=== PATIENT | male | born 1960 ===

== ENCOUNTER 2019-11-21 21:12 | Emergency (ER) | payer OTHER, BC, SELFPAY ==
[2019-11-21 21:21] VITALS: BP 134/73; PULSE 74; RESP 18; TEMP 36.7; O2SAT 98; BMI 36.9
--- NOTE | 2019-11-21 21:56 | CTR_ITS ---
PROCEDURE INFORMATION: Exam: CT Head Without Contrast Exam date and time: 11/21/2019 10:10 PM Age: 59 years old Clinical indication: Syncope and collapse; Patient HX: Syncope episode yesterday hitting head on toilet C/O SRIVASTAVA, abrasion L forhead and neck pain TECHNIQUE: Imaging protocol: Computed tomography of the head without contrast. Radiation optimization: All CT scans at this facility use at least one of these dose optimization techniques: automated exposure control; mA and/or kV adjustment per patient size (includes targeted exams where dose is matched to clinical indication); or iterative reconstruction. COMPARISON: No relevant prior studies available. RADIATION DOSE METRICS: Total DLP (mGy-cm): 868.58 FINDINGS: Brain: No acute intracranial hemorrhage or mass effect. No definite acute infarct by CT. MRI could be more sensitive/specific for detection, as clinically directed. Ventricles: Ventricle size is normal for age. Bones/joints: No definite acute skull fracture. Sinuses: Included paranasal sinuses are essentially clear. Mastoid air cells: No significant acute finding. Soft tissues: Evidence for soft tissue injury/scalp hematoma in the left frontal region. CT/CT head wo con* [id number] IMPRESSION: 1. No acute intracranial hemorrhage or mass effect. 2. No definite acute infarct by CT, see above. 3. Other findings discussed above. Radiation Dose CTDIVOL = (mGy): DLP = 868.58 (mGy-cm)
--- NOTE | 2019-11-21 21:56 | XRR_ITS ---
PROCEDURE INFORMATION: Exam: XR Chest, 1 View Exam date and time: 11/21/2019 10:50 PM Age: 59 years old Clinical indication: Injury or trauma; Injury history: Syncope; Initial encounter; Abrasion TECHNIQUE: Imaging protocol: XR of the chest Views: 1 view. COMPARISON: No relevant prior studies available. FINDINGS: Lungs: No CHF/pulmonary edema. Visible lungs appear essentially clear. Pleural space: No visible pneumothorax. No definite pleural fluid. Heart/Mediastinum: Heart size is within normal limits. Vasculature: Mild aortic tortuosity. Bones/joints: No significant acute finding. XR/XR chest 1V portable [id number] IMPRESSION: 1. Essentially unremarkable single view chest. 2. Other findings discussed above.
--- NOTE | 2019-11-21 21:57 | CTR_ITS ---
PROCEDURE INFORMATION: Exam: CT Cervical Spine Without Contrast Exam date and time: 11/21/2019 10:10 PM Age: 59 years old Clinical indication: Patient HX: Syncope episode yesterday hitting head on toilet C/O SRIVASTAVA, abrasion L forhead and neck pain; Additional info: Fall TECHNIQUE: Imaging protocol: Computed tomography images of the cervical spine without contrast. Radiation optimization: All CT scans at this facility use at least one of these dose optimization techniques: automated exposure control; mA and/or kV adjustment per patient size (includes targeted exams where dose is matched to clinical indication); or iterative reconstruction. COMPARISON: No relevant prior studies available. RADIATION DOSE METRICS: Total DLP (mGy-cm): 808.94 FINDINGS: Vertebrae: On axial CT images, no definite acute fracture is visible. Sagittal and coronal reconstructions show no fracture or subluxation. Mild to moderate degenerative disc changes and facet joint arthritis at several levels. Discs/Spinal canal/Neural foramina: No definite/significant disc herniation by CT, MRI could be more sensitive if clinically indicated. Lungs: No significant acute finding in the upper lungs. CT/CT cervical spin wo con* [id number] IMPRESSION: 1. No definite acute fracture or subluxation by CT. 2. Other findings discussed above. Radiation Dose CTDIVOL = (mGy): DLP = 808.94 (mGy-cm)
--- NOTE | 2019-11-21 21:57 | ECG_ITS ---
[facility] Test Date: 2019-11-21 Pat Name: Ramez Montiel Department: Room: Gender: Male [employer] C[employer]: : 1960 Requested By: Yan Ribera Order Number: [id number] Wilson MD: Debbie Werner M.D. Measurements Intervals [place] Rate: 69 P: 54 [place]: 182 QRS: 3 QRSD: 100 T: 39 QT: 392 QTc: 422 Interpretive Statements SINUS RHYTHM No previous ECG available for comparison Electronically Signed On 11-22-2019 8:24:34 CDT by Debbie Werner M.D. [id number]
[2019-11-21] MEDS: sodium chloride 0.9% 1,000 ML 999 ML IV (22:00)
[2019-11-21 22:10] LABS: Basophils % 0.3 %; Eosinophils # 0.3 10^3/uL (0.0-0.8); Eosinophils % 3.7 %; Hemoglobin 14.1 g/dL (11.7-16.6); Lymphocytes # 3.1 10^3/uL (0.8-4.8); Lymphocytes % 42.3 %; Mean Corpuscular HGB Conc 34.4 g/dL (30.0-36.0); Mean Corpuscular Hemoglobin 32.9 pg (28.0-34.0); Mean Corpuscular Volume 95.6 fL (80-94); Mean Platelet Volume 10.1 fL (7.4-10.4); Monocytes # 1.1 10^3/uL (0.2-0.9); Monocytes % 14.9 %; Neutrophils # 2.82 10^3/uL (1.8-7.7); Neutrophils % 38.5 %; Nucleated Red Blood Cells % 0 %; Platelet Count 176 10^3/cmm (130-400); Red Blood Count 4.29 10^6/uL (4.1-5.3); Red Cell Distribution Width 12.4 % (12.1-15.1); White Blood Count 7.3 10^3/uL (4.0-10.0)
[2019-11-21 22:39] LABS: Alanine Aminotransferase 31 U/L (0-41); Albumin Level 4.4 g/dL (3.5-5.2); Alkaline Phosphatase 61 IU/L (40-130); Anion Gap 14.8 (5-19); Aspartate Amino Transferase 23 U/L (0-40); Blood Urea Nitrogen 10 mg/dL (6-20); Calcium 8.7 mg/dL (8.5-10.5); Carbon Dioxide 23 mmol/L (22-29); Chloride 102 mmol/L (98-107); Creatine Phosphokinase 152 U/L (39-308); Globulin 2.8 g/dL (1.3-4.6); Glomerular Filtration Rate 68.5 mL/min (90-130); Glucose 105 mg/dL (65-115); Lactate (Lactic Acid level) 1.3 mmol/L (0.5-2.2); Lipase 24 U/L (13-60); Magnesium 1.9 mg/dL (1.7-2.3); Osmolality Calculated 278 mOsm/kg (285-295); Potassium 3.8 mmol/L (3.5-5.1); Sodium 136 mmol/L (136-145); Total Bilirubin 0.3 mg/dL (0.15-1.2); Total Protein 7.2 g/dL (6.6-8.7)
[2019-11-21 22:41] LABS: Troponin(5th) Baseline 9 ng/L (0-15)
[2019-11-21 22:58] LABS: Add Urine Microscopic? NO
[2019-11-21 22:59] LABS: Urine Appearance Clear (CLEAR); Urine Color Straw (Yellow); pH Urine 6 (5-7)
[2019-11-21 23:00] LABS: Bilirubin Urine Neg (NEGATIVE); Blood Urine Neg (Negative); Glucose Urine UA Norm (Normal); Ketones Urine Negative (Negative); Leukocyte Esterase Urine Negative (Negative); Nitrate Urine Negative (Negative); Protein Urine Neg (Negative); Specific Gravity, Urine 1.005 (1.005-1.030); Urobilinogen Urine Norm (Negative)
[2019-11-21 23:22] VITALS: BP 114/78; PULSE 78; RESP 16; O2SAT 98
--- NOTE | 2019-11-22 01:34 | W.ED.FALL ---
HPI - Fall General: Chief Complaint: Fall Stated Complaint: fall/loc Time Seen by Provider: 11/21/19 21:30 History of Present Illness: HPI Narrative: 59-year-old gentleman who the day prior to arrival presents with a syncopal episode. He evidently became diaphoretic, got sick at his stomach, and had some loose stool, followed by vomiting episode. He then passed out, striking his head while he was passed out. He complains of some headache, neck stiffness, and some mild dizziness. He never had any chest pain. His diarrhea is improved at this point. He has had no more vomiting. MD complaint: fall Onset (ago): day(s) (1) Fall from: other Fall witnessed: no Place fall occurred: other Loss of consciousness: Yes Associated symptoms-after fall: Reports headache(s); Denies abdominal pain, chest pain, confusion, hematuria, neck pain or vertigo Review of Systems Const: Reports: chills; Denies: fever(s) Eyes: Denies: change in vision or blurry vision ENMT: Denies: swelling of lips/tongue, epistaxis, post nasal drip or sinus pain Card: Denies: chest pain, palpitations, irregular heart rhythm or edema Resp: Denies: dyspnea or wheezing GI: Reports: nausea and vomiting; Denies: abdominal pain, hematochezia or melena : Denies: difficulty urinating or hematuria Musc: Denies: neck pain or back pain Skin/Breast: Denies: rash or pruritus Neuro: Reports: headache(s) and dizziness; Denies: vertigo, confusion or seizure-like activity Psych: Denies: anxiety Physical Exam Const: GENERAL APPEARANCE: well developed ORIENTATION/CONSCIOUSNESS: Yes oriented to person, Yes oriented to place and Yes oriented to time HENMT: COMMON NORMALS: normocephalic, external ears normal and Normal external nose present HEAD & SCALP: normocephalic; no scalp tenderness FACE & SINUS: normal facial exam and other (Small abrasion to forehead) NOSE: Normal external nose present and No nasal discharge present EXTERNAL EAR: Yes external ears normal THROAT: posterior oropharynx normal; no peritonsillar mass Eye: COMMON NORMALS: Equal, round and reactive pupils present, EOMs intact bilaterally and conjunctivae normal EYELID: eyelids normal CONJUNCTIVA: Yes conjunctivae normal PUPIL: Yes Equal, round and reactive pupils present Neck/C-Spine: COMMON NORMALS: full ROM GENERAL: No tracheal deviation CERVICAL SPINE: Yes normal cervical lordosis and Yes Cervical spine tenderness Chest: COMMONS NORMALS: normal inspection of the chest CHEST: No tenderness Resp: COMMON NORMALS: clear to auscultation bilaterally EFFORT & INSPECTION: No tachypneic, No respiratory distress, No retractions, No uses accessory muscles and No tracheal deviation AUSCULTATION: clear to auscultation bilaterally, no rhonchi, no wheezes and lung sounds not diminished Cardio: COMMON NORMALS: regular rate and regular rhythm RATE: regular rate RHYTHM: regular rhythm HEART SOUNDS: no murmurs PERIPHERAL PULSES: radial pulses present GI: INSPECTION: No abdominal distension AUSCULTATION: No Hyperactive bowel sounds present and No Hypoactive bowel sounds present PALPATION: No Guarding due to palpation present (GI) and No Rigid due to palpation PERCUSSION: no dullness to percussion and no tympanic to percussion Neuro: SENSORIUM/ORIENTATION: Yes oriented to person, Yes oriented to place and Yes oriented to time Psych: COMMON NORMALS: mental status grossly normal Skin: COMMON NORMALS: no rashes or lesions noted GENERAL SKIN EXAM: no rashes or lesions noted Course Vital Signs: Vital signs: Vital Signs Temperature 98.1 F 11/21/19 21:21 Pulse Rate 78 11/21/19 23:22 Respiratory Rate 16 11/21/19 23:22 Blood Pressure 114/78 11/21/19 23:22 Pulse Oximetry 98 11/21/19 23:22 MDM - Fall MDM Narrative: Medical decision making narrative: 59-year-old male with a syncopal episode yesterday. Appears to be while he was vomiting. His EKG is normal with a normal axis, rate of [address] changes. His troponin was negative. Hemoglobin 14. White blood cell count 7. Other labs are benign. His head CT is negative, his CT of the cervical spine is negative for fracture or dislocation. He is got no radicular symptoms coming from his neck. His chest x-ray is nonacute. He will be allowed discharge. Lab Data: Labs: Lab Results 11/21/19 11/21/19 11/21/19 Range/Units 21:55 21:55 21:55 WBC 7.3 (4.0-10.0) 10^3/ uL RBC 4.29 (4.1-5.3) 10^6/u L Hgb 14.1 (11.7-16.6) g/dL Hct 41.0 L (42.0-52.0) % MCV 95.6 H (80-94) fL MCH 32.9 (28.0-34.0) pg MCHC 34.4 (30.0-36.0) g/dL RDW 12.4 (12.1-15.1) % Plt Count 176 (130-400) 10^3/c mm MPV 10.1 (7.4-10.4) fL Neut % (Auto) 38.5 % Lymph % (Auto) 42.3 % Butts % (Auto) 14.9 % Eos % (Auto) 3.7 % Baso % (Auto) 0.3 % Neut # (Auto) 2.82 (1.8-7.7) 10^3/u L Lymph # (Auto) 3.1 (0.8-4.8) 10^3/u L Butts # (Auto) 1.1 H (0.2-0.9) 10^3/u L Eos # (Auto) 0.3 (0.0-0.8) 10^3/u L Baso # (Auto) 0.0 (0.0-0.1) 10^3/u L Nucleated RBC % (a uto) 0 % Nucleated RBCs # 0.0 /100WBC Sodium 136 (136-145) mmol/L Potassium 3.8 (3.5-5.1) mmol/L Chloride 102 (98-107) mmol/L Carbon Dioxide 23 (22-29) mmol/L Anion Gap 14.8 (5-19) BUN 10 (6-20) mg/dL Creatinine 1.1 (0.7-1.2) mg/dL GFR Calculation 68.5 L (90-130) mL/min Glucose 105 (65-115) mg/dL Calculated Osmolal ity 278 L (285-295) mOsm/k g Lactate 1.3 (0.5-2.2) mmol/L Calcium 8.7 (8.5-10.5) mg/dL Magnesium 1.9 (1.7-2.3) mg/dL Total Bilirubin 0.3 (0.15-1.2) mg/dL AST 23 (0-40) U/L ALT 31 (0-41) U/L Alkaline Phosphata se 61 (40-130) IU/L Creatine Kinase 152 (39-308) U/L Troponin T Baselin e (0-15) ng/L C-Reactive Protein 39.0 H (0.0-4.9) mg/L Total Protein 7.2 (6.6-8.7) g/dL Albumin 4.4 (3.5-5.2) g/dL Globulin 2.8 (1.3-4.6) g/dL Lipase 24 (13-60) U/L Urine Color (Yellow) Urine Appearance (CLEAR) Urine pH (5-7) Ur Specific Gravit y (1.005-1.030) Urine Protein (Negative) Urine Glucose (UA) (Normal) Urine Ketones (Negative) Urine Blood (Negative) Urine Nitrate (Negative) Urine Bilirubin (NEGATIVE) Urine Urobilinogen (Negative) mg/dL Ur Leukocyte Mabel ase (Negative) 11/21/19 11/21/19 Range/Units 21:55 22:50 WBC (4.0-10.0) 10^3/ uL RBC (4.1-5.3) 10^6/u L Hgb (11.7-16.6) g/dL Hct (42.0-52.0) % MCV (80-94) fL MCH (28.0-34.0) pg MCHC (30.0-36.0) g/dL RDW (12.1-15.1) % Plt Count (130-400) 10^3/c mm MPV (7.4-10.4) fL Neut % (Auto) % Lymph % (Auto) % Butts % (Auto) % Eos % (Auto) % Baso % (Auto) % Neut # (Auto) (1.8-7.7) 10^3/u L Lymph # (Auto) (0.8-4.8) 10^3/u L Butts # (Auto) (0.2-0.9) 10^3/u L Eos # (Auto) (0.0-0.8) 10^3/u L Baso # (Auto) (0.0-0.1) 10^3/u L Nucleated RBC % (a uto) % Nucleated RBCs # /100WBC Sodium (136-145) mmol/L Potassium (3.5-5.1) mmol/L Chloride (98-107) mmol/L Carbon Dioxide (22-29) mmol/L Anion Gap (5-19) BUN (6-20) mg/dL Creatinine (0.7-1.2) mg/dL GFR Calculation (90-130) mL/min Glucose (65-115) mg/dL Calculated Osmolal ity (285-295) mOsm/k g Lactate (0.5-2.2) mmol/L Calcium (8.5-10.5) mg/dL Magnesium (1.7-2.3) mg/dL Total Bilirubin (0.15-1.2) mg/dL AST (0-40) U/L ALT (0-41) U/L Alkaline Phosphata se (40-130) IU/L Creatine Kinase (39-308) U/L Troponin T Baselin e 9 (0-15) ng/L C-Reactive Protein (0.0-4.9) mg/L Total Protein (6.6-8.7) g/dL Albumin (3.5-5.2) g/dL Globulin (1.3-4.6) g/dL Lipase (13-60) U/L Urine Color Straw (Yellow) Urine Appearance Clear (CLEAR) Urine pH 6 (5-7) Ur Specific Gravit y 1.005 (1.005-1.030) Urine Protein Neg (Negative) Urine Glucose (UA) Norm (Normal) Urine Ketones Negative (Negative) Urine Blood Neg (Negative) Urine Nitrate Negative (Negative) Urine Bilirubin Neg (NEGATIVE) Urine Urobilinogen Norm (Negative) mg/dL Ur Leukocyte Mabel ase Negative (Negative) Discharge Plan Discharge Patient Disposition: Home Clinical Impression: Syncope Qualifiers: Syncope type: unspecified Qualified Code(s): R55 - Syncope and collapse Condition: Stable Discharge Orders: Discharge Order (Routine); Ordered 11/21/19 Ordered By: Yan Ratliff Discharge Diet: Advance as tolerated Discharge Activity: Increase activity as tolerated Patient Instructions: Syncope (ED) Activity Restrictions/Additional Instructions: Return for repeated episodes of syncope or passing out, chest discomfort, worsening diarrhea, vomiting liquids or medications, fever, other concerning symptoms. Discharge Date/Time: 11/21/19 23:28 Coding Level of Care Code ED Ict Security Specialist for Gloria Crook
== END 2019-11-21 23:28 | disposition home or self-care (01) ==
PROVIDERS: Emergency Provider Emergency Medicine
DX: R55 Syncope and collapse (principal)
CPT/HCPCS: 12345; 70450; 71045; 72125; 80053; 81003; 82550; 83605; 83690; 83735; 84484; 85025; 86140; 93005; 96360; 99283; 99284; J7030